=== PATIENT | female | born 1950 | race Caucasian/White ===

== ENCOUNTER 2016-09-13 12:24 | Outpatient (CLI) | payer OTHER ==
[2015-03-05 21:48] VITALS: BMI 30.4
--- NOTE | 2016-09-16 08:23 | MAMMO ---
EXAM: Bilateral digital screening mammogram History: Screening. Comparison: Bilateral mammogram 06/17/2014 Findings: MLO and CC views of bilateral breasts demonstrate scattered fibroglandular breast parench yma. There are no dominant masses, no suspicious microcalcifications and no architectural distortio ns Impression: Stable negative mammogram. Recommend followup routine screening mammography in 1 year. BIRADS 1
== END 2016-09-13 12:25 | disposition home or self-care (01) ==
LOC: RAD 12:24
PROVIDERS: ATTEND Internal Medicine
DX: Z12.31 Encounter for screening mammogram for malignant neoplasm of breast (principal)

== ENCOUNTER 2017-01-21 10:01 | Day surgery (SDC) ==
[2015-03-05 21:48] VITALS: BMI 30.4
[2017-01-21] MEDS ORDERED: LIDOCAINE 1% 20 ML MDV ID ONE (10:48)
[2017-01-21] MEDS ORDERED: VERSED ONE (11:41)
[2017-01-21] MEDS ORDERED: DIPRIVAN 20 ML VIAL IVP ONE (11:41)
[2017-01-21 15:08] VITALS: BP 150/83; TEMP 97.3
--- NOTE | 2017-01-22 11:25 | OP ---
INDICATIONS FOR PROCEDURE: 66 year old female presents for colonoscopy exam. She has family history of colon cancer involving her mother and father both over the age of 60. MEDICATIONS: SEE ANESTHESIA NOTES. PROCEDURE: COLONOSCOPY. REPORT: The risks, benefits, alternatives and limitations were discussed in detail with the patient. Informed consent was obtained. After adequate sedation was achieved, a digital rectal exam revealed good tone, no masses. The colonoscope was introduced into the rectum and advanced under direct visual guidance to the cecum. The cecum was identified by the appendiceal orifice and IC valve. I then slowly withdrew the scope in circumferential manner and examined the mucosa quite carefully. I looked on the proximal and distal sides of folds and flexures as best as possible. I sent the retroflex scope in the right colon and left colon to increase visualization. The colonic mucosa is unremarkable it's entire length other then diverticulosis scattered throughout the sigmoid. There is several small mouth diverticuli present. The scope was retroflexed to look at the anal canal which was unremarkable. The patient tolerated the procedure well with stable vital signs and pulse oximetry throughout. The withdraw time is 7 minute and 0 seconds. IMPRESSION: 1. Mild sigmoid diverticulosis RECOMMENDATIONS: 1. High fiber diet 2. Office visit as needed 3. Colonoscopy examination again in five years or sooner if there is any signs or symptoms to indicate otherwise. CC: Dr. Wilberto WATSON
== END 2017-01-21 13:30 | disposition home or self-care (01) ==
LOC: SURG 10:01
PROVIDERS: ATTEND Internal Medicine Gastroenterology
DX: Z80.0 Family history of malignant neoplasm of digestive organs (principal); K57.30 Diverticulosis of large intestine without perforation or abscess without bleeding

== ENCOUNTER 2017-02-05 13:00 | Outpatient (RCR) ==
[2015-03-05 21:48] VITALS: BMI 30.4
--- NOTE | 2017-01-29 13:24 | RS.OPPTEV2 ---
Date of Note: 01/28/17 Visit #: 1 Date of Evaluation: 01/28/17 Payer Source: MEDICARE Date of Onset/Injury/Change in Status: 11/11/16 Treatment Diagnosis: Low back with Left LE pain History of Condition/Mechanism of Injury:: Patient reports a history of pain since 2002. States she has been attending Pain Management. Reports increased low back and Left LE pain since approximately November of this year. Most recent injection from Pain Management was mid October. States the benefits from the injections do not last as long as they used to. Prior Level of Function.....Patient was independent with: ADL's, Self Care, Caregiving, Ambulation/Mobility, Community Integration/Access Functional Limitations: Sleep Current Subjective/complaints:: Patient reports left side low back pain and sciatica pain that radiates down the left LE to the heel. She denies any tingling or numbness in the left LE. States the pain interrupts her sleep. She has to change positions often and even has to get up and walk around. She has found that using ice to the left low back area helps decrease the left LE pain. States sitting and lying down is the worst. Moving around, such as walking, helps decrease her pain. Reports she has 14 acres that she has to mow each week. States she tries to stay active, despite the pain. States there is not a moment without pain. States she had left TKA in June and needs to have the same surgery on the right knee. Treatment Side (optional): Right Medical History Medical History: Arthritis Medical History Comments:: Fibromyalgia Surgical History: Hysterectomy Surgical History Comments:: Left TKA June 2016, bilateral Carpal Tunnel surgery, Cervical spine fusion, right toe fusion Smoking Status: Never smoker Hx Home Medications: Aspirin, Klonopin, Synthroid, Percocet, Cymbalta Patient's Goals: Her goal is to get relief of left low back and extremity pain. Pain Assessment - Pain Description Pain Location: left low back and LE Pain Description: Radiating Current Pain Intensity: 6-7/10 Worst Pain Intensity: 12+/10 Functional Outcome Measure Oswestry LBP: 52 - G Codes & Severity Modifier G Codes & Modifier: Body position current ck. Body position goal CI Source of G Code score: Oswestry LBP scale Gait - Gait Pattern Gait Comments: Patient ambulates without an assistive device and no obvious gait deviation. - ROM Lumbar Flexion: Hand reach to Mid-Shins (most mobility is at the hips, lumbar lacks mobility) Sidebending to Left: Reach to Lateral Joint Line Sidebending to Right: Reach to Lateral Joint Line Comments: Lumbar extension is WFL's. - Strength Trunk Rotation: 4 Good Comments: Bilateral hip flexion 4/5. All else, 4+ to 5/5 throughout the LE's. - Special Tests SLR Test: Negative Left, Negative Right Seated Dural Stretch Test: Negative Left, Negative Right SI Joint Compression: Negative Palpation Comments:: Patient reports tenderness with palpation over the left SI joint and along the left lumbar paraspinals. Reports pain with central PA's to the lower lumbar vertebra of L3-L5. Demonstrates minimal to moderate muscle guarding along the lumbar paraspinals. Sensation - Sensation Right Lower Extremity: Intact/Normal Left Lower Extremity: Intact/Normal Additional Comments: Additional Comments: LE leg length discrepancy in supine. Right LE appears shorter. minmal stretching to right HS equals out the LE discrepancy. Right SLR to 45-50 degrees, left SLR to 60 degrees. Interventions - Exercise/Activities/Manual Therapy Exercises/Activities: Patient instructed in HS stretch to only the right LE for now, and bilateral hip flexion isometrics. Manual Therapy: NA HOME EXERCISE PROGRAM: HS stretch to only the right LE for now, and bilateral hip flexion isometrics. - Charges Total Direct Minutes: 60 mins Total Treatment Time: 60 mins Procedures billed for this date of service:: CHAR medium complexity Assessment Assessment: Patient presents to therapy with a diagnosis of Lumbar facet arthropathy. She reports an increase in left low back and LE pain since November of this year. Reports limited tolerance for prolonged sitting or laying down. She has to change positions and keep moving to minimize her pain. Reports interrupted sleep because of this pain. She demonstrates increased lumbar muscle tone and reports tenderness at the left lumbosacral region. She also demonstrates an imbalance of HS muscle length and weakness of the hip flexors. She shows potential to benefit from exercises to address the above issues to reduce muscle guarding and pain, and improve her sleep and increase her tolerance with sitting. Patient Education: Education of diagnosis, Home Exercise Program, Education of Plan of Care Rehab Potential: Good Short Term Goals Goal #1: Pt independent in basic HEP. Goal to be met by: 02/12/17 Goal #2: Left LE symptoms localized to the low back. Goal to be met by: 02/12/17 Goal #3: Tenderness at the lumbosacral region decreased to minimal Goal to be met by: 02/12/17 Communications Executive Goals Goal #1: Pt knows HEP and to continue ex's to maintain functional level at D/c. Goal to be met by: 03/15/17 Goal #2: Score on Oswestry LBP scale improved to less than 19% impairment. Goal to be met by: 03/15/17 Goal #3: Pt to report minimal interruption of sleep from back pain. Goal to be met by: 03/15/17 Goal #4: Pt able to tolerate prolonged sitting with minimal back/LLE discomfort. Goal to be met by: 03/15/17 Plan - Treatment to be Provided Procedures: Therapeutic Exercises, Therapeutic Activity, Manual Therapy, Patient Education Modalities: Electrical Stimulation, Ultrasound/Phonophoresis, Cryotherapy, Hot Packs Other:: Modalities if needed to help patient tolerate exercises. - Treatment Plan Frequency: 2-3 X week Duration: 4 weeks ORDER # VISITS AND/OR THROUGH DATE: 03/15/17 - Treatment Code (1) Low back pain Qualifiers: Chronicity: acute Back pain laterality: left Sciatica presence: with sciatica Sciatica laterality: sciatica of left side Qualified Description: Acute left-sided low back pain with left-sided sciatica Qualifier Code(s): (M54.42) Lumbago with sciatica, left side (2) Arthropathy of lumbar facet joint Comments: M12.88 (3) SI (sacroiliac) joint dysfunction Comments: M53.3
--- NOTE | 2017-01-31 15:22 | RS.OPPTDN ---
Subjective Date of Note: 01/31/17 Visit #: 2 Date of Evaluation: 01/28/17 Payer Source: MEDICARE Treatment Diagnosis: Low back with Left LE pain Current Subjective/complaints:: Patient says she has elevated pain currently to the L SI joint. She says pain is "going all down my leg." She reports taking pain meds only when absolutely needed and that she tries rest, ice, laying down before taking it. Patient asks to leave early to attend another appointment. Pain Assessment - Pain Description Pain Location: left low back and LE Pain Description: Radiating Current Pain Intensity: elevated - Treatment Modality: Ultrasound Parameters/Method Applied: continuous @ 1.5 w/cm2 x 12 mins to the L SI joint Patient Position: Right Sidelying Interventions - Exercise/Activities/Manual Therapy Exercises/Activities: Patient received passive HS and piriformis stretching for the L. Also, lower trunk rotation. She performs pillow squeezes, isometric hip flexion, abd, and bridging x 10 reps. Total minutes of Exercise: 16 Manual Therapy: NA HOME EXERCISE PROGRAM: HS stretch to only the right LE for now, and bilateral hip flexion isometrics. - Charges Total Direct Minutes: 28 Total Treatment Time: 28 Procedures billed for this date of service:: u/s, ex Assessment: Patient encouraged to try pillow squeezes for home and appeared to trini all other therex and stretches well. She demo great motivation to be compliant with HEP and continue with current treatment plan to ease her pain and return to PLOF. Patient Education: Education of diagnosis, Body/Joint mechanics, Home Exercise Program, Home Safety, Activity Modification, Education of Plan of Care Patient demonstrates compliance with HEP?: Yes Short Term Goals Goal #1: Pt independent in basic HEP. Goal to be met by: 02/12/17 Progress towards Goal:: Progressing Comments:: has initiated Goal #2: Left LE symptoms localized to the low back. Goal to be met by: 02/12/17 Goal #3: Tenderness at the lumbosacral region decreased to minimal Goal to be met by: 02/12/17 Assisted Goals Goal #1: Pt knows HEP and to continue ex's to maintain functional level at D/c. Goal to be met by: 03/15/17 Goal #2: Score on Oswestry LBP scale improved to less than 19% impairment. Goal to be met by: 03/15/17 Goal #3: Pt to report minimal interruption of sleep from back pain. Goal to be met by: 03/15/17 Goal #4: Pt able to tolerate prolonged sitting with minimal back/LLE discomfort. Goal to be met by: 03/15/17 Plan PLAN OF CARE EXPIRES ON:: 03/15/17 ORDER # VISITS AND/OR THROUGH DATE: 03/15/17 PLAN: Progress Exercises
--- NOTE | 2017-02-03 15:43 | RS.CXNS ---
Date of scheduled appointment: 02/03/17 Type: No Show
--- NOTE | 2017-02-04 10:58 | RS.OPPTDN ---
Subjective Date of Note: 02/04/17 Visit #: 3 Date of Evaluation: 01/28/17 Payer Source: MEDICARE Treatment Diagnosis: Low back with Left LE pain Current Subjective/complaints:: Patient says after her last session she felt good, but she had to mow her 3 acres. She says she goes slow and uses a pillow in her seat to absorb the bumps. Pain Assessment - Pain Description Pain Location: left low back and LE Pain Description: Radiating Current Pain Intensity: elevated - Treatment Modality: Ultrasound Parameters/Method Applied: continuous @ 1.6 w/cm2 x 12 mins to the L lumbar paraspinals and SI joint Patient Position: Right Sidelying Interventions - Exercise/Activities/Manual Therapy Exercises/Activities: Continued passive HS and piriformis stretching for the L. Also, lower trunk rotation. She performs pillow squeezes, isometric hip flexion, abd, and bridging x 10 reps. Total minutes of Exercise: 16 Manual Therapy: NA HOME EXERCISE PROGRAM: HS stretch to only the right LE for now, and bilateral hip flexion isometrics. - Charges Total Direct Minutes: 28 Total Treatment Time: 28 Procedures billed for this date of service:: u/s, ex Assessment: Patient had relief from her first session, but admits pain is worse now. She had mowed 3 acres the day after her session and with history of recent TKR on the L side pain may also be aggravated by these factors. She experiences improved pain to the L SI and back as well as groin after treatment today. Ambulation appears less antalgic as well. Patient Education: Education of diagnosis, Body/Joint mechanics, Home Exercise Program, Home Safety, Activity Modification, Education of Plan of Care Short Term Goals Goal #1: Pt independent in basic HEP. Goal to be met by: 02/12/17 Progress towards Goal:: Progressing Goal #2: Left LE symptoms localized to the low back. Goal to be met by: 02/12/17 Goal #3: Tenderness at the lumbosacral region decreased to minimal Goal to be met by: 02/12/17 Nitroglycerin Distributor Goals Goal #1: Pt knows HEP and to continue ex's to maintain functional level at D/c. Goal to be met by: 03/15/17 Goal #2: Score on Oswestry LBP scale improved to less than 19% impairment. Goal to be met by: 03/15/17 Goal #3: Pt to report minimal interruption of sleep from back pain. Goal to be met by: 03/15/17 Goal #4: Pt able to tolerate prolonged sitting with minimal back/LLE discomfort. Goal to be met by: 03/15/17 Plan PLAN OF CARE EXPIRES ON:: 03/15/17 ORDER # VISITS AND/OR THROUGH DATE: 03/15/17 PLAN: Continue Plan of Care
--- NOTE | 2017-02-05 14:12 | RS.OPPTDN ---
Subjective Date of Note: 02/05/17 Visit #: 4 Date of Evaluation: 01/28/17 Payer Source: MEDICARE Treatment Diagnosis: Low back with Left LE pain Current Subjective/complaints:: Patient reports worsening pain since yesterday. Says her pain is so bad, she doesn't know what to do. She says her pain management follow up is not unitl 02/25/17, but her pain is near unbearable. She recalls pain that begins at the L hip posteriorally and runs along the anterior aspect and to the groin. She asks if during her TKA a strap may have been wrapped around the hip and upper thigh. She says she has already taken 2 percocets today and has had very little relief. Pain Assessment - Pain Description Pain Location: left low back and LE, hip to groin Pain Description: Radiating Current Pain Intensity: elevated - Treatment Modality: US with ES (Comb.) Parameters/Method Applied: 1.5 w/cm2 and 9 pk volts x 12 mins to the L SI, lumbar paraspinals Patient Position: Right Sidelying - Heat/Cryotherapy Treatment: Cryotherapy (L lumbar paraspinals/SI and anteriorally along the L thigh/groin in supine) Interventions - Exercise/Activities/Manual Therapy Exercises/Activities: No therex today related to patient feeling elevated pain Manual Therapy: NA HOME EXERCISE PROGRAM: HS stretch to only the right LE for now, and bilateral hip flexion isometrics. - Charges Total Direct Minutes: 12 Total Treatment Time: 27 Procedures billed for this date of service:: cp, u/s combo Assessment: Patient presents with antalgic gait, c/o worsening pain to the L hip posteriorally extending anteriorally and to groin. Patient moans and grimaces, holds and rubs L upper thigh. Modified treatment to add estim to u/s today due to increased symptoms. Patient is going to contact her PCP and referring MD about a sooner appt and imaging for the L hip. After 10 mins into cryotherapy, patient admitted improved pain enough so that she could walk out of our department with less difficulty. She was encouraged to continue ice and take her pain med once home. Patient Education: Education of diagnosis, Body/Joint mechanics, Home Exercise Program, Home Safety, Activity Modification, Education of Plan of Care Patient demonstrates compliance with HEP?: Yes (as able) Short Term Goals Goal #1: Pt independent in basic HEP. Goal to be met by: 02/12/17 Progress towards Goal:: Progressing Goal #2: Left LE symptoms localized to the low back. Goal to be met by: 02/12/17 Progress towards Goal:: No Change Goal #3: Tenderness at the lumbosacral region decreased to minimal Goal to be met by: 02/12/17 Progress towards Goal:: No Change Snf Goals Goal #1: Pt knows HEP and to continue ex's to maintain functional level at D/c. Goal to be met by: 03/15/17 Goal #2: Score on Oswestry LBP scale improved to less than 19% impairment. Goal to be met by: 03/15/17 Goal #3: Pt to report minimal interruption of sleep from back pain. Goal to be met by: 03/15/17 Progress towards goal: No Change Goal #4: Pt able to tolerate prolonged sitting with minimal back/LLE discomfort. Goal to be met by: 03/15/17 Plan PLAN OF CARE EXPIRES ON:: 03/15/17 ORDER # VISITS AND/OR THROUGH DATE: 03/15/17 PLAN: Continue Plan of Care
--- NOTE | 2017-02-06 11:47 | RS.QUICKDC ---
Discharge from PT Date of Discharge: 02/06/17 Number of Visits: 4 Reason for Discharge: Patient calls this morning and says she has had such severe pain, that her MD is ordering flexeril, increased dosage of percocet, and scheduling an MRI at [place] for her back and hip. She is discontinuing therapy at this time. See daily notes for specific treatment. Gcodes: Body position D/C--CK. Goal--CI
== END 2017-02-10 ==
PROVIDERS: ATTEND Pain Medicine Interventional Pain Medicine
DX: M12.88 Other specific arthropathies, not elsewhere classified, other specified site (principal); M54.2 Cervicalgia

== ENCOUNTER 2017-02-21 07:49 | Outpatient (CLI) ==
[2015-03-05 21:48] VITALS: BMI 30.4
--- NOTE | 2017-02-21 10:30 | MRI ---
EXAM: Lumbar spine MRI without contrast. HISTORY: Chronic low back pain. COMPARISON: None. TECHNIQUE: Multiplanar, multisequence MR images were acquired of the cervical spine without contras t. FINDINGS: Five lumbar-type vertebra are present. There is mild thoracolumbar dextroscoliosis cente red at L1-2 and there is 5 mm rightward translation of L2 with respect to L1. There is mild accentu ation of the usual lumbar lordosis and there is 3 mm retrolisthesis of L1 on L2 and 3 mm degenerativ e anterolisthesis of L5 on S1. The left L5 pars interarticularis is not well seen. The lumbar vert ebra are generally normal in height. Intrinsic bone marrow signal is heterogeneous. Ventral and la teral osteophytes are present and these most significant at L1-2 and L5, S1. At L1-2, there is oste ophytosis with moderately severe disc space narrowing, moderate endplate irregularity and reactive m arrow changes along the endplates. At L5-S1, there is osteophytosis with moderate disc space narrow ing and mild to moderate endplate irregularity that is greatest laterally bilaterally, worse on the right. There is desiccation and mild disc space narrowing of the T11-12 intervertebral disc and dis c desiccation from L1-2 through L3-4 and at L5-S1. Conus medullaris ends at L1 and has normal confi guration and signal intensity. The partially visualized liver, spleen and right kidney are unremarkable. A simple left renal cyst is present. The gallbladder is distended. There are no paravertebral masses. T11-12: There is a minor disc bulge that is asymmetric to the right which minimally narrows the inf erior right neural foramen and there is a moderate central and left paracentral disc extrusion with inferior migration of the disc fragment. Moderate right hypertrophic facet arthropathy is present. There is mild right foraminal stenosis. T12-L1: There is a minor disc bulge that is asymmetric to the right which narrows the inferior righ t neural foramen and there is a small right paracentral disc extrusion that extends above the disc l evel. This mildly effaces the right lateral recess. There is no central canal stenosis or foramina l stenosis. L1-2: There is retrolisthesis of L1 on L2 and right lateral translation of L2 with respect to L1. There is a moderate diffuse disc bulge with a small central disc protrusion that is slightly asymmet noel to the right and minor right and mild left hypertrophic facet arthropathy. There is mild irregu larity of the articular surfaces of the right facet joint with tiny subchondral erosions and a tiny effusion. There is minor spinal stenosis and mild right and mild to moderate left neural foraminal s tenosis. AP diameter of the thecal sac is 9.4 mm. L2-3: There is a minor disc bulge that is asymmetric to the right and there is mild irregularity of the left posterolateral endplates at L2-3 with a small chronic left posterolateral L2 inferior endp late Schmorl's node and a tiny disc protrusion that has partially herniated into the Schmorl's node and into the anterior inferior left neural foramen. Mild bilateral facet hypertrophy is present wit hout foraminal stenosis. L3-4: There is a minor disc bulge that may be physiologic and mild bilateral facet arthropathy. Th ere is no central canal stenosis or foraminal stenosis. L4-5: There is a mild disc bulge and mild to moderate right and mild left hypertrophic facet arthro narda. There is no central canal stenosis. L5-S1: There is anterolisthesis of L5 on S1 and there is a diffuse disc bulge with a small superimp osed right paracentral disc extrusion. There are small bilateral far endplate osteophytes, greater on the right that encroach on the exiting L5 nerves, greater on the right. Mild to moderate bilater al hypertrophic facet arthropathy and ligamentum flavum hypertrophy is present. There is mild left and mild to moderate right neural foraminal stenosis. IMPRESSION: 1. Mild to moderate lower thoracic and lumbar degenerative spondylosis with minor spinal stenosis a t L1-2. 2. Moderate central and left paracentral disc extrusion T11-12, small right paracentral disc extrus ion T12-L1, small central disc protrusion L1-2 and small right paracentral disc extrusion L5-S1.
== END 2017-02-21 07:50 | disposition home or self-care (01) ==
LOC: RAD 07:49
PROVIDERS: ATTEND Pain Medicine Interventional Pain Medicine
DX: M12.88 Other specific arthropathies, not elsewhere classified, other specified site (principal); M46.1 Sacroiliitis, not elsewhere classified; M79.671 Pain in right foot; M79.672 Pain in left foot; M54.40 Lumbago with sciatica, unspecified side; G89.29 Other chronic pain

== ENCOUNTER 2017-03-04 12:18 | Outpatient (CLI) | payer OTHER ==
[2015-03-05 21:48] VITALS: BMI 30.4
--- NOTE | 2017-03-04 12:55 | DI ---
EXAM: Two views of the left hip. History: Left hip pain. Comparison: Left hip radiograph 03/01/2016 Findings: No acute fracture or dislocation. Mild to moderate narrowing of the left hip joint with osteophytes. Impression: 1. No acute osseous abnormality. 2. 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
--- NOTE | 2017-03-04 12:58 | DI ---
EXAM: Single view of the pelvis. History: Left hip pain. Comparison: Left hip radiograph 03/04/2017 Findings: No acute fracture or dislocation. Mild to moderate narrowing of the left hip joint with osteophyte. Degenerative changes within the lower lumbar spine. Impression: 1. No acute osseous abnormality. 2. 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 3. Degenerative changes within the lower lumbar spine.
== END 2017-03-04 12:19 | disposition home or self-care (01) ==
LOC: RAD 12:18
PROVIDERS: ATTEND Pain Medicine Interventional Pain Medicine
DX: M25.552 Pain in left hip (principal)